=== PATIENT | male | born 1970 | race African-American/Black ===

== ENCOUNTER 2022-05-09 13:37 | Inpatient (IN) ==
[2022-05-09] MEDS ORDERED: SODIUM CHLORIDE 0.9% 1,000 ML IV STA ×2 (14:14→14:53)
[2022-05-09 14:32] LABS: Albumin 3.4 G/DL (3.4-5.0); Bilirubin,Total 0.4 MG/DL (0.20-1.00); Calcium 9.1 MG/DL (8.5-10.1); Osmolality,Calculated 358.1 MOS/KG (273-304); Total Protein 6.7 G/DL (6.4-8.2)
[2022-05-09 14:48] LABS: Potassium 7.1 MMOL/L (3.5-5.1)
[2022-05-09] MEDS ORDERED: SODIUM BICARBONATE 50 MEQ/50 ML VIAL IV STA (14:49)
[2022-05-09] MEDS ORDERED: INSULIN REGULAR 100 UNIT/ML IV ONE (14:50)
[2022-05-09] MEDS ORDERED: INSULIN REGULAR DRIP 100 ML IV PRN (14:50)
[2022-05-09] MEDS ORDERED: CALCIUM GLUCONATE RIDER 1,000 MG/50 ML PREMIX IV ONE (14:52)
[2022-05-09 14:58] LABS: Basophils % 0.3 % (0.0-0.8); Eosinophils % 0.2 % (0.00-10.9); Hematocrit 38.6 VOL% (42.0-52.0); Hemoglobin 9.5 GM/DL (14.0-18.0); Immature Granulocytes % 0.9 %; Immature Granulocytes Absolute 0.11 #; Lymphocytes # 1.1 10*3/uL (1.4-4.0); Lymphocytes % 9.1 % (21.2-54.2); Mean Corpuscular HGB Conc 24.6 GM/DL (32-36); Mean Corpuscular Volume 119.1 FL (87-102); Mean Platelet Volume 13.4 FL (9.6-12.0); Monocytes # 0.7 10*3/uL (0.11-0.8); Monocytes % 5.9 % (1.7-12.7); NRBC # 0.02 10*3/uL; Neutrophils % 83.6 % (38.7-73.9); Platelet Count 228 T/CUMM (130-400); Red Blood Count 3.24 MC/CUMM (3.8-5.5); Red Cell Distribution Width 15.2 % (9.3-17.3); White Blood Count 12.1 T/CUMM (4-12)
[2022-05-09 15:06] LABS: Anisocytosis 1+; Macrocytosis 1+; Microcytosis Slight; Platelet Estimate Adequate
[2022-05-09 15:07] LABS: Polychromasia Slight
[2022-05-09 15:08] LABS: Hypochromia Slight
[2022-05-09 15:19] LABS: Arterial Base Excess iSTAT -23 MMOL/L (-2.5-2.5); Arterial Bicarbonate iSTAT 4.5 MMOL/L (20-26); Arterial O2 Saturation iSTAT 98 % (95-100); Arterial PCO2 iSTAT 14 MM HG (35-48); Arterial PO2 iSTAT 135 MM HG (80-95); Arterial Total CO2 iSTAT < 5 MMO/L (23-27); Arterial pH iSTAT 7.125 (7.35-7.45)
[2022-05-09] MEDS ORDERED: ONDANSETRON 4 MG/2 ML VIAL IV PRN (15:52)
[2022-05-09] MEDS ORDERED: ALBUTEROL 2.5 MG/3 ML NEB RESP TX PRN (15:52)
[2022-05-09] MEDS ORDERED: LACTATED RINGERS 2,000 ML IV ONE (15:55)
[2022-05-09 15:59] LABS: Barbiturates Screen,Urine Negative (Negative); Benzodiazepines Screen,Urine Negative (Negative); Cannabinoid Screen,Urine Negative (Negative); Opiate Screen,Urine Negative (Negative); Phencyclidine Screen,Urine Negative (Negative)
[2022-05-09] MEDS ORDERED: DEXTROSE 50% 25 GM/50 ML SYRINGE IV PRN ×2 (16:03)
[2022-05-09] MEDS: ENOXAPARIN 30 MG/0.3 ML SYRINGE SUBCUT SCH (17:14)
[2022-05-09 17:15] LABS: Folate 12.03 NG/ML (5.38-24.0)
[2022-05-09] MEDS: PANTOPRAZOLE 40 MG VIAL IV SCH (17:15)
[2022-05-09 17:22] LABS: Amorphous Crystals,Urine Occasional /HPF (Few); Bacteria,Urine Occasional /HPF (Few); Bilirubin,Urine Negative (Negative); Blood, Urine Small mg/dL (Negative); Glucose,Urine (UA) 500 mg/dL (Negative); Ketones,Urine 40 mg/dL (Negative); Mucus,Urine Occasional /LPF (Occasional); Nitrite,Urine Negative (Negative); Protein,Urine Negative (Negative); Squamous Epithelial Cell,Urine Occasional /HPF (0-10); Urine Appearance Clear (Clear); Urine Color Yellow (Yellow); Urine Specific Gravity 1.015 (1.001-1.035); Urine Urobilinogen 0.2 eU/dL (<2.0); Urine pH 5.5 (4.5-8.0)
[2022-05-09 17:22] LABS: Calcium 8.6 MG/DL (8.5-10.1); Osmolality,Calculated 365.4 MOS/KG (273-304); Potassium 5.2 MMOL/L (3.5-5.1)
[2022-05-09] MEDS: LACTATED RINGERS 1,000 ML IV SCH ×2 (18:15→23:11)
[2022-05-09] MEDS ORDERED: LABETALOL 20 MG/4 ML SYRINGE IV ONE (19:19)
[2022-05-09 19:26] LABS: Calcium 8.9 MG/DL (8.5-10.1); Osmolality,Calculated 353.7 MOS/KG (273-304); Potassium 4.5 MMOL/L (3.5-5.1)
[2022-05-09] MEDS ORDERED: HALOPERIDOL 5 MG/ML AMP IM ONE (19:35)
[2022-05-10 01:18] LABS: Calcium 9.4 MG/DL (8.5-10.1); Potassium 3.7 MMOL/L (3.5-5.1)
[2022-05-10] MEDS ORDERED: LABETALOL 20 MG/4 ML SYRINGE IV ONE (02:30)
[2022-05-10] MEDS: LACTATED RINGERS 1,000 ML IV SCH ×5 (03:58→23:41)
[2022-05-10 05:24] LABS: Basophils % 0.1 % (0.0-0.8); Eosinophils % 0.5 % (0.00-10.9); Hematocrit 26.7 VOL% (42.0-52.0); Immature Granulocytes % 0.2 %; Immature Granulocytes Absolute 0.02 #; Lymphocytes # 1.3 10*3/uL (1.4-4.0); Lymphocytes % 15.9 % (21.2-54.2); Mean Corpuscular HGB Conc 33.7 GM/DL (32-36); Mean Corpuscular Volume 86.7 FL (87-102); Monocytes # 0.5 10*3/uL (0.11-0.8); Monocytes % 5.3 % (1.7-12.7); Platelet Count 186 T/CUMM (130-400); Red Blood Count 3.08 MC/CUMM (3.8-5.5); Red Cell Distribution Width 14.1 % (9.3-17.3); White Blood Count 8.4 T/CUMM (4-12)
[2022-05-10 05:40] LABS: Calcium 9.3 MG/DL (8.5-10.1); Osmolality,Calculated 320.4 MOS/KG (273-304); Phosphorous 2.8 MG/DL (2.5-4.9); Potassium 3.6 MMOL/L (3.5-5.1)
[2022-05-10] MEDS ORDERED: DEXTROSE 10% 250 ML BAG IV PRN (05:45)
[2022-05-10 05:50] LABS: Anisocytosis 1+; Band Neutrophils 5 % (0-10); Eosinophils 1 % (0-10); Lymphocytes 14 % (20-55); Microcytosis 1+; Target Cells Slight; Total Cells Counted 100
[2022-05-10 05:51] LABS: Hypochromia Slight; Platelet Estimate Adequate; Polychromasia Slight
[2022-05-10] MEDS ORDERED: hydrALAZINE 20 MG/1 ML VIAL IV PRN (05:54)
[2022-05-10] MEDS: SODIUM CHLORIDE 0.45% 1,000 ML IV SCH ×2 (06:15→16:41)
[2022-05-10 08:12] LABS: Calcium 9.3 MG/DL (8.5-10.1); Osmolality,Calculated 319.7 MOS/KG (273-304); Potassium 3.8 MMOL/L (3.5-5.1)
[2022-05-10] MEDS: INSULIN LISPRO 100 UNIT/ML SUBCUT SCH ×5 (09:40→23:41)
[2022-05-10] MEDS: ZINC OXIDE PASTE 113 GM TUBE TOP SCH ×2 (11:30→21:09)
[2022-05-10 12:37] LABS: Osmolality,Calculated 319.4 MOS/KG (273-304); Potassium 3.1 MMOL/L (3.5-5.1)
[2022-05-10] MEDS: POTASSIUM CHLORIDE 20 MEQ TABLET PO SCH ×3 (13:10→21:09)
[2022-05-10] MEDS ORDERED: INSULIN ASPART PROTAMINE/ASPART 70/30 100 UNIT/ML SUBCUT ONE (14:13)
[2022-05-10] MEDS: buPROPion SR 150 MG TABLET PO SCH (14:51)
[2022-05-10] MEDS: amLODIPine 10 MG TABLET PO SCH (14:51)
[2022-05-10] MEDS ORDERED: INSULIN NPH/REG 70/30 100 UNIT/ML SUBCUT ONE (15:20)
[2022-05-10] MEDS: VANCOMYCIN 125 MG CAPSULE PO SCH ×2 (16:10→21:09)
[2022-05-10] MEDS: ENOXAPARIN 30 MG/0.3 ML SYRINGE SUBCUT SCH (16:10)
[2022-05-10] MEDS: PANTOPRAZOLE 40 MG VIAL IV SCH (16:10)
[2022-05-10] MEDS ORDERED: INSULIN ASPART PROTAMINE/ASPART 70/30 100 UNIT/ML SUBCUT SCH ×2 (16:30)
[2022-05-10] MEDS: CHOLESTYRAMINE/ASPARTAME 4 GM PACK PO SCH (21:09)
[2022-05-10] MEDS: MIRTAZAPINE 30 MG TABLET PO SCH (21:09)
[2022-05-11] MEDS: POTASSIUM CHLORIDE 20 MEQ TABLET PO SCH ×4 (02:08→18:24)
[2022-05-11] MEDS: SODIUM CHLORIDE 0.45% 1,000 ML IV SCH ×2 (02:08→18:23)
[2022-05-11] MEDS: VANCOMYCIN 125 MG CAPSULE PO SCH ×2 (03:20→09:11)
[2022-05-11] MEDS: INSULIN LISPRO 100 UNIT/ML SUBCUT SCH ×6 (04:05→23:18)
[2022-05-11] MEDS: LACTATED RINGERS 1,000 ML IV SCH ×3 (05:53→14:00)
[2022-05-11 07:02] LABS: Eosinophils # 0.1 10*3/uL (0.0-0.87); Eosinophils % 1.1 % (0.00-10.9); Hematocrit 30.1 VOL% (42.0-52.0); Hemoglobin 9.4 GM/DL (14.0-18.0); Immature Granulocytes % 0.5 %; Immature Granulocytes Absolute 0.04 #; Lymphocytes # 0.8 10*3/uL (1.4-4.0); Lymphocytes % 8.8 % (21.2-54.2); Mean Corpuscular HGB Conc 31.2 GM/DL (32-36); Mean Corpuscular Volume 90.4 FL (87-102); Mean Platelet Volume 11.8 FL (9.6-12.0); Monocytes # 0.4 10*3/uL (0.11-0.8); Monocytes % 4.4 % (1.7-12.7); Neutrophils % 85.2 % (38.7-73.9); Platelet Count 163 T/CUMM (130-400); Red Blood Count 3.33 MC/CUMM (3.8-5.5); Red Cell Distribution Width 15.1 % (9.3-17.3); White Blood Count 8.8 T/CUMM (4-12)
[2022-05-11 07:24] LABS: Band Neutrophils 22 % (0-10); Eosinophils 3 % (0-10); Lymphocytes 8 % (20-55); Platelet Estimate Normal; Total Cells Counted 100
[2022-05-11 07:25] LABS: Anisocytosis 1+; Macrocytosis Slight
[2022-05-11] MEDS ORDERED: INSULIN ASPART PROTAMINE/ASPART 70/30 100 UNIT/ML SUBCUT SCH ×2 (07:30)
[2022-05-11 07:41] LABS: Calcium 8.7 MG/DL (8.5-10.1); Osmolality,Calculated 296.4 MOS/KG (273-304); Potassium 4.5 MMOL/L (3.5-5.1)
[2022-05-11] MEDS: amLODIPine 10 MG TABLET PO SCH (09:10)
[2022-05-11] MEDS: buPROPion SR 150 MG TABLET PO SCH (09:10)
[2022-05-11] MEDS: CHOLESTYRAMINE/ASPARTAME 4 GM PACK PO SCH (09:11)
[2022-05-11] MEDS: ZINC OXIDE PASTE 113 GM TUBE TOP SCH ×2 (13:33→20:39)
[2022-05-11] MEDS: PANTOPRAZOLE 40 MG VIAL IV SCH (18:22)
[2022-05-11] MEDS: INSULIN ASPART PROTAMINE/ASPART 70/30 100 UNIT/ML SUBCUT SCH (18:22)
[2022-05-11] MEDS: MIRTAZAPINE 30 MG TABLET PO SCH (20:39)
[2022-05-11] MEDS: NIFEdipine 10 MG CAPSULE PO PRN (23:36)
[2022-05-12] MEDS: INSULIN LISPRO 100 UNIT/ML SUBCUT SCH ×6 (03:38→23:40)
[2022-05-12 05:07] LABS: Basophils % 0.3 % (0.0-0.8); Eosinophils # 0.2 10*3/uL (0.0-0.87); Eosinophils % 1.8 % (0.00-10.9); Hematocrit 33.3 VOL% (42.0-52.0); Hemoglobin 10.7 GM/DL (14.0-18.0); Immature Granulocytes % 0.5 %; Immature Granulocytes Absolute 0.05 #; Lymphocytes # 1.1 10*3/uL (1.4-4.0); Lymphocytes % 11.6 % (21.2-54.2); Mean Corpuscular HGB Conc 32.1 GM/DL (32-36); Mean Corpuscular Volume 88.6 FL (87-102); Mean Platelet Volume 12.7 FL (9.6-12.0); Monocytes # 0.6 10*3/uL (0.11-0.8); Monocytes % 6.2 % (1.7-12.7); Neutrophils % 79.6 % (38.7-73.9); Platelet Count 176 T/CUMM (130-400); Red Blood Count 3.76 MC/CUMM (3.8-5.5); Red Cell Distribution Width 14.9 % (9.3-17.3); White Blood Count 9.5 T/CUMM (4-12)
[2022-05-12 05:27] LABS: Calcium 9.1 MG/DL (8.5-10.1); Osmolality,Calculated 279.4 MOS/KG (273-304); Potassium 3.9 MMOL/L (3.5-5.1)
[2022-05-12 06:36] LABS: Eosinophils 3 % (0-10); Lymphocytes 9 % (20-55); Platelet Estimate Adequate; Total Cells Counted 100
[2022-05-12] MEDS: amLODIPine 10 MG TABLET PO SCH (07:59)
[2022-05-12] MEDS: buPROPion SR 150 MG TABLET PO SCH (07:59)
[2022-05-12] MEDS: ZINC OXIDE PASTE 113 GM TUBE TOP SCH ×2 (08:01→20:05)
[2022-05-12] MEDS: INSULIN ASPART PROTAMINE/ASPART 70/30 100 UNIT/ML SUBCUT SCH ×2 (11:06→17:47)
[2022-05-12] MEDS: CHOLESTYRAMINE/ASPARTAME 4 GM PACK PO SCH (11:07)
[2022-05-12] MEDS: PANTOPRAZOLE 40 MG VIAL IV SCH (17:46)
[2022-05-12] MEDS: MIRTAZAPINE 30 MG TABLET PO SCH (20:05)
[2022-05-13] MEDS: NIFEdipine 10 MG CAPSULE PO PRN (00:35)
[2022-05-13] MEDS ORDERED: hydrALAZINE 20 MG/1 ML VIAL IV STA (00:45)
[2022-05-13] MEDS: INSULIN LISPRO 100 UNIT/ML SUBCUT SCH ×2 (03:45→09:15)
[2022-05-13] MEDS: INSULIN ASPART PROTAMINE/ASPART 70/30 100 UNIT/ML SUBCUT SCH (09:08)
[2022-05-13] MEDS: amLODIPine 10 MG TABLET PO SCH (09:10)
[2022-05-13] MEDS: buPROPion SR 150 MG TABLET PO SCH (09:10)
[2022-05-13] MEDS: ZINC OXIDE PASTE 113 GM TUBE TOP SCH (09:14)
[2022-05-13] MEDS: CHOLESTYRAMINE/ASPARTAME 4 GM PACK PO SCH (09:15)
[2022-05-13 10:06] VITALS: BP 143/98
[2022-05-13] MEDS ORDERED: INFLUENZA VIRUS VACCINE 0.5 ML SYRINGE IM ONE (12:08)
== END 2022-05-13 13:00 | disposition home or self-care (01) | DRG 420 ==
LOC: N.ED 13:37 → N.EDINP 15:52 → SUATTDRO 15:52 → N.ICU 17:36
PROVIDERS: ADMIT Internal Medicine; ATTEND Emergency Medicine

== ENCOUNTER 2022-07-12 17:25 | Inpatient (IN) ==
[2022-07-12] MEDS ORDERED: SODIUM CHLORIDE 0.9% 2,000 ML IV STA (18:26)
[2022-07-12] MEDS ORDERED: INSULIN REGULAR 100 UNIT/ML SUBCUT STA (18:37)
[2022-07-12] MEDS ORDERED: ONDANSETRON 4 MG/2 ML VIAL IV STA (18:37)
[2022-07-12] MEDS ORDERED: INSULIN REGULAR DRIP 100 ML IV PRN (18:38)
[2022-07-12 18:44] LABS: Arterial Base Excess iSTAT -13 MMOL/L (-2.5-2.5); Arterial Bicarbonate iSTAT 12.3 MMOL/L (20-26); Arterial O2 Saturation iSTAT 97 % (95-100); Arterial PCO2 iSTAT 27 MM HG (35-48); Arterial PO2 iSTAT 102 MM HG (80-95); Arterial Total CO2 iSTAT 13 MMO/L (23-27); Arterial pH iSTAT 7.273 (7.35-7.45)
[2022-07-12 18:45] LABS: Basophils % 0.2 % (0.0-0.8); Eosinophils % 0.1 % (0.00-10.9); Hematocrit 34.7 VOL% (42.0-52.0); Hemoglobin 10.6 GM/DL (14.0-18.0); Immature Granulocytes % 0.6 %; Immature Granulocytes Absolute 0.08 #; Lymphocytes # 1.6 10*3/uL (1.4-4.0); Lymphocytes % 12.2 % (21.2-54.2); Mean Corpuscular HGB Conc 30.5 GM/DL (32-36); Mean Corpuscular Volume 91.3 FL (87-102); Mean Platelet Volume 11.5 FL (9.6-12.0); Monocytes # 0.7 10*3/uL (0.11-0.8); Monocytes % 5.8 % (1.7-12.7); Neutrophils % 81.1 % (38.7-73.9); Platelet Count 397 T/CUMM (130-400); White Blood Count 12.66 T/CUMM (4-12)
[2022-07-12] MEDS ORDERED: INSULIN REGULAR 100 UNIT/ML IV STA (18:52)
[2022-07-12 18:59] LABS: Alanine Aminotransferase 28 U/L (16-61); Albumin 3.9 G/DL (3.4-5.0); Alkaline Phosphatase 163 U/L (45-117); Amylase 55 U/L (25-115); Aspartate Amino Transferase 11 U/L (0-37); Blood Urea Nitrogen 33 MG/DL (7-18); Calcium 9.5 MG/DL (8.5-10.1); Carbon Dioxide 15 MMOL/L (21-32); Chloride 107 MMOL/L (98-107); Osmolality,Calculated 320.3 MOS/KG (273-304); Sodium 141 MMOL/L (136-145); Total Protein 8.4 G/DL (6.4-8.2)
[2022-07-12 19:03] LABS: Glucose 701 MG/DL (74-106)
[2022-07-12] MEDS ORDERED: hydrALAZINE 20 MG/1 ML VIAL IV STA (19:20)
[2022-07-12] MEDS ORDERED: SODIUM PHOSPHATE INJ 12.5 MMOL in SODIUM CHLORIDE 0.9% 250 ML IV PRN (19:31)
[2022-07-12] MEDS ORDERED: MAGNESIUM SULF RIDER 2 GM/50 ML PREMIX IV PRN (19:31)
[2022-07-12] MEDS ORDERED: MAGNESIUM SULF RIDER 4 GM/100 ML PREMIX IV PRN (19:31)
[2022-07-12] MEDS ORDERED: DEXTROSE 10% 250 ML BAG IV PRN (19:31)
[2022-07-12] MEDS ORDERED: DEXTROSE 10% 25 GM/250 ML BAG IV PRN ×2 (19:31→20:00)
[2022-07-12] MEDS ORDERED: DOCUSATE SODIUM 100 MG CAPSULE PO PRN (19:36)
[2022-07-12] MEDS ORDERED: ALBUTEROL 2.5 MG/3 ML NEB RESP TX PRN (19:36)
[2022-07-12] MEDS ORDERED: ACETAMINOPHEN 325 MG TABLET PO PRN (19:36)
[2022-07-12] MEDS ORDERED: SODIUM BICARB INJ 100 MEQ in STERILE WATER INJ 400 ML IV PRN (20:00)
[2022-07-12 20:36] LABS: Urine Appearance Clear (Clear); Urine Color Yellow (Yellow)
[2022-07-12 20:37] LABS: Bilirubin,Urine Negative (Negative); Blood, Urine Trace mg/dL (Negative); Glucose,Urine (UA) 500 mg/dL (Negative); Ketones,Urine 60 mg/dL (Negative); Nitrite,Urine Negative (Negative); Protein,Urine 30 mg/dL (Negative); Urine Specific Gravity 1.015 (1.001-1.035); Urine Urobilinogen 0.2 eU/dL (<2.0); Urine pH 5.5 (4.5-8.0)
[2022-07-12 20:38] LABS: Mucus,Urine Occasional /LPF (Occasional); Squamous Epithelial Cell,Urine Occasional /HPF (0-10)
[2022-07-12] MEDS: SODIUM CHLORIDE 0.9% 1,000 ML IV SCH (20:41)
[2022-07-12 21:12] LABS: Calcium 8.7 MG/DL (8.5-10.1); Osmolality,Calculated 311.8 MOS/KG (273-304); Potassium 4.5 MMOL/L (3.5-5.1)
[2022-07-12] MEDS: hydrALAZINE 20 MG/1 ML VIAL IV PRN ×2 (21:21→22:14)
[2022-07-12] MEDS ORDERED: LEVOFLOXACIN INJ 750 MG/150 ML PREMIX IV SCH (23:00)
[2022-07-12] MEDS ORDERED: hydrALAZINE 20 MG/1 ML VIAL IV ONE (23:30)
[2022-07-13] MEDS: SODIUM CHLORIDE 0.9% 1,000 ML IV SCH ×3 (01:11→07:39)
[2022-07-13] MEDS: NICOTINE 21 MG/24 HR PATCH TRANSDERM SCH ×2 (01:12→08:11)
[2022-07-13 04:58] LABS: Basophils # 0.1 10*3/uL (0.0-0.2); Basophils % 0.4 % (0.0-0.8); Eosinophils # 0.1 10*3/uL (0.0-0.87); Eosinophils % 0.4 % (0.00-10.9); Hematocrit 28.2 VOL% (42.0-52.0); Hemoglobin 8.7 GM/DL (14.0-18.0); Immature Granulocytes % 0.7 %; Immature Granulocytes Absolute 0.11 #; Lymphocytes # 2.4 10*3/uL (1.4-4.0); Mean Corpuscular HGB Conc 30.9 GM/DL (32-36); Mean Corpuscular Volume 89.5 FL (87-102); Mean Platelet Volume 11.6 FL (9.6-12.0); Neutrophils % 78.5 % (38.7-73.9); Platelet Count 235 T/CUMM (130-400); Red Blood Count 3.15 MC/CUMM (3.8-5.5); Red Cell Distribution Width 14.8 % (9.3-17.3); White Blood Count 16.81 T/CUMM (4-12)
[2022-07-13] MEDS: hydrALAZINE 20 MG/1 ML VIAL IV PRN ×2 (05:06→12:10)
[2022-07-13 05:13] LABS: Calcium 8.2 MG/DL (8.5-10.1); Osmolality,Calculated 296.8 MOS/KG (273-304); Potassium 3.7 MMOL/L (3.5-5.1)
[2022-07-13 05:14] LABS: Phosphorous 1.5 MG/DL (2.5-4.9)
[2022-07-13 05:17] LABS: % Iron Saturation 27.4 % (18-50); Ferritin 300.6 ng/mL (26-388); Risk Ratio 2.52; VLDL Cholesterol 16.8 MG/DL
[2022-07-13] MEDS: ONDANSETRON 4 MG/2 ML VIAL IV PRN (05:20)
[2022-07-13 05:36] LABS: Alanine Aminotransferase 20 U/L (16-61); Albumin 2.9 G/DL (3.4-5.0); Alkaline Phosphatase 127 U/L (45-117); Aspartate Amino Transferase 7 U/L (0-37); Bilirubin,Total < 0.39 MG/DL (0.20-1.00); Blood Urea Nitrogen 20 MG/DL (7-18); Calcium 8.4 MG/DL (8.5-10.1); Carbon Dioxide 18 MMOL/L (21-32); Chloride 119 MMOL/L (98-107); Glucose 238 MG/DL (74-106); Osmolality,Calculated 300.6 MOS/KG (273-304); Potassium 3.8 MMOL/L (3.5-5.1); Sodium 146 MMOL/L (136-145); Total Protein 6.9 G/DL (6.4-8.2)
[2022-07-13] MEDS ORDERED: DEXT 5% NACL 0.45% KCL 20 MEQ 20 MEQ/1,000 ML BAG IV SCH (06:30)
[2022-07-13 07:50] LABS: Calcium 8.5 MG/DL (8.5-10.1); Osmolality,Calculated 292.7 MOS/KG (273-304); Potassium 3.6 MMOL/L (3.5-5.1)
[2022-07-13] MEDS: ASPIRIN EC 81 MG TABLET PO SCH (08:11)
[2022-07-13] MEDS: ENOXAPARIN 40 MG/0.4 ML SYRINGE SUBCUT SCH (08:11)
[2022-07-13] MEDS: buPROPion SR 150 MG TABLET PO SCH (08:11)
[2022-07-13] MEDS: amLODIPine 10 MG TABLET PO SCH (08:11)
[2022-07-13] MEDS ORDERED: SODIUM CHLOR 0.45% KCL 20 MEQ 20 MEQ/1,000 ML BAG IV SCH (09:30)
[2022-07-13] MEDS ORDERED: INSULIN ASPART PROTAMINE/ASPART 70/30 100 UNIT/ML SUBCUT SCH ×3 (10:00→16:30)
[2022-07-13] MEDS: LACTATED RINGERS 1,000 ML IV SCH ×2 (10:18→20:27)
[2022-07-13] MEDS: LEVOFLOXACIN 750 MG TABLET PO SCH (10:18)
[2022-07-13] MEDS: INSULIN ASPART PROTAMINE/ASPART 70/30 100 UNIT/ML SUBCUT SCH (10:39)
[2022-07-13] MEDS: INSULIN REGULAR 100 UNIT/ML SUBCUT SCH ×4 (12:04→20:28)
[2022-07-13 12:49] LABS: Calcium 8.7 MG/DL (8.5-10.1); Osmolality,Calculated 289.4 MOS/KG (273-304); Potassium 3.7 MMOL/L (3.5-5.1)
[2022-07-13] MEDS ORDERED: SODIUM CHLORIDE 0.45% 1,000 ML IV SCH (13:00)
[2022-07-13 15:59] LABS: Calcium 8.7 MG/DL (8.5-10.1); Osmolality,Calculated 285.3 MOS/KG (273-304); Potassium 3.1 MMOL/L (3.5-5.1)
[2022-07-13] MEDS: POTASSIUM CHLORIDE RIDER 10 MEQ/100 ML PREMIX IV PRN ×3 (16:11→20:03)
[2022-07-13] MEDS ORDERED: MIRTAZAPINE 30 MG TABLET PO SCH (21:00)
[2022-07-14] MEDS: POTASSIUM CHLORIDE RIDER 10 MEQ/100 ML PREMIX IV PRN ×2 (00:17→01:21)
[2022-07-14] MEDS: ONDANSETRON 4 MG/2 ML VIAL IV PRN ×2 (03:17→07:55)
[2022-07-14 04:48] LABS: Basophils # 0.1 10*3/uL (0.0-0.2); Basophils % 0.3 % (0.0-0.8); Eosinophils # 0.3 10*3/uL (0.0-0.87); Eosinophils % 1.8 % (0.00-10.9); Hematocrit 31.4 VOL% (42.0-52.0); Hemoglobin 9.9 GM/DL (14.0-18.0); Immature Granulocytes % 0.6 %; Immature Granulocytes Absolute 0.08 #; Lymphocytes # 1.3 10*3/uL (1.4-4.0); Lymphocytes % 9.3 % (21.2-54.2); Mean Corpuscular HGB Conc 31.5 GM/DL (32-36); Mean Corpuscular Volume 88.5 FL (87-102); Mean Platelet Volume 11.2 FL (9.6-12.0); Monocytes # 0.9 10*3/uL (0.11-0.8); Monocytes % 6.2 % (1.7-12.7); Neutrophils % 81.8 % (38.7-73.9); Platelet Count 339 T/CUMM (130-400); Red Blood Count 3.55 MC/CUMM (3.8-5.5); Red Cell Distribution Width 14.4 % (9.3-17.3); White Blood Count 14.35 T/CUMM (4-12)
[2022-07-14 05:26] LABS: Alanine Aminotransferase 18 U/L (16-61); Albumin 2.8 G/DL (3.4-5.0); Alkaline Phosphatase 128 U/L (45-117); Aspartate Amino Transferase 11 U/L (0-37); Bilirubin,Total < 0.39 MG/DL (0.20-1.00); Blood Urea Nitrogen 10 MG/DL (7-18); Calcium 8.7 MG/DL (8.5-10.1); Carbon Dioxide 20 MMOL/L (21-32); Chloride 109 MMOL/L (98-107); Glucose 321 MG/DL (74-106); Osmolality,Calculated 283.8 MOS/KG (273-304); Potassium 4.4 MMOL/L (3.5-5.1); Sodium 137 MMOL/L (136-145); Total Protein 6.8 G/DL (6.4-8.2)
[2022-07-14] MEDS: hydrALAZINE 20 MG/1 ML VIAL IV PRN (05:32)
[2022-07-14] MEDS: LACTATED RINGERS 1,000 ML IV SCH (05:33)
[2022-07-14] MEDS: INSULIN REGULAR 100 UNIT/ML SUBCUT SCH ×3 (07:55→11:41)
[2022-07-14] MEDS: buPROPion SR 150 MG TABLET PO SCH (09:42)
[2022-07-14] MEDS: amLODIPine 10 MG TABLET PO SCH (09:42)
[2022-07-14] MEDS: ASPIRIN EC 81 MG TABLET PO SCH (09:42)
[2022-07-14] MEDS: LEVOFLOXACIN 750 MG TABLET PO SCH (09:42)
[2022-07-14] MEDS: ENOXAPARIN 40 MG/0.4 ML SYRINGE SUBCUT SCH (09:43)
[2022-07-14] MEDS: INSULIN ASPART PROTAMINE/ASPART 70/30 100 UNIT/ML SUBCUT SCH (09:43)
[2022-07-14] MEDS: NICOTINE 21 MG/24 HR PATCH TRANSDERM SCH (10:21)
[2022-07-14 12:03] VITALS: BP 147/89
== END 2022-07-14 15:10 | disposition home or self-care (01) | DRG 420 ==
LOC: N.ED 17:25 → SUATTDRO 19:30 → N.EDINP 19:30 → N.CC 21:28 → N.TELEN 07-13 21:10
PROVIDERS: ADMIT Family Medicine; ATTEND Internal Medicine

== ENCOUNTER 2022-07-19 03:27 | Inpatient (IN) ==
[2022-07-19] MEDS ORDERED: ONDANSETRON 4 MG/2 ML VIAL IV STA (03:44)
[2022-07-19] MEDS ORDERED: SODIUM CHLORIDE 0.9% 1,000 ML IV STA ×2 (03:44→04:57)
[2022-07-19] MEDS ORDERED: INSULIN REGULAR 100 UNIT/ML IV STA ×2 (03:46→04:56)
[2022-07-19] MEDS ORDERED: hydrALAZINE 20 MG/1 ML VIAL IV STA ×2 (03:57→06:25)
[2022-07-19 04:17] LABS: Arterial Base Excess iSTAT -18 MMOL/L (-2.5-2.5); Arterial Bicarbonate iSTAT 7.8 MMOL/L (20-26); Arterial O2 Saturation iSTAT 97 % (95-100); Arterial PCO2 iSTAT 19 MM HG (35-48); Arterial PO2 iSTAT 106 MM HG (80-95); Arterial Total CO2 iSTAT 8 MMO/L (23-27); Arterial pH iSTAT 7.216 (7.35-7.45)
[2022-07-19 04:18] LABS: Basophils % 0.3 % (0.0-0.8); Eosinophils % 0.2 % (0.00-10.9); Hematocrit 39.3 VOL% (42.0-52.0); Immature Granulocytes % 0.4 %; Immature Granulocytes Absolute 0.05 #; Lymphocytes # 0.7 10*3/uL (1.4-4.0); Lymphocytes % 5.9 % (21.2-54.2); Mean Corpuscular HGB Conc 26.7 GM/DL (32-36); Mean Corpuscular Volume 104.2 FL (87-102); Mean Platelet Volume 12.8 FL (9.6-12.0); Monocytes # 0.6 10*3/uL (0.11-0.8); Monocytes % 4.8 % (1.7-12.7); Neutrophils % 88.4 % (38.7-73.9); Platelet Count 373 T/CUMM (130-400); Red Blood Count 3.77 MC/CUMM (3.8-5.5); Red Cell Distribution Width 15.7 % (9.3-17.3); White Blood Count 12.51 T/CUMM (4-12)
[2022-07-19 04:19] LABS: Hemoglobin 10.5 GM/DL (14.0-18.0)
[2022-07-19] MEDS ORDERED: INSULIN REGULAR DRIP 100 ML IV PRN (04:46)
[2022-07-19 04:50] LABS: Alanine Aminotransferase 24 U/L (16-61); Albumin 3.9 G/DL (3.4-5.0); Alkaline Phosphatase 176 U/L (45-117); Amylase 77 U/L (25-115); Aspartate Amino Transferase 13 U/L (0-37); Blood Urea Nitrogen 54 MG/DL (7-18); Calcium 10.1 MG/DL (8.5-10.1); Carbon Dioxide 6 MMOL/L (21-32); Chloride 90 MMOL/L (98-107); Osmolality,Calculated 348.1 MOS/KG (273-304); Sodium 128 MMOL/L (136-145); Total Protein 9.3 G/DL (6.4-8.2)
[2022-07-19 04:54] LABS: Glucose 1483 MG/DL (74-106); Potassium 7.1 MMOL/L (3.5-5.1)
[2022-07-19] MEDS ORDERED: CALCIUM CHLORIDE 1,000 MG/10 ML SYRINGE IV STA (04:57)
[2022-07-19] MEDS ORDERED: SODIUM PHOSPHATE IV PRN (05:54)
[2022-07-19] MEDS ORDERED: SODIUM CHLORIDE 0.9% IV PRN (05:54)
[2022-07-19] MEDS ORDERED: SODIUM BICARB INJ 100 MEQ in STERILE WATER INJ 400 ML IV PRN (05:54)
[2022-07-19] MEDS ORDERED: MAGNESIUM SULF RIDER 2 GM/50 ML PREMIX IV PRN (05:56)
[2022-07-19] MEDS ORDERED: MAGNESIUM SULF RIDER 4 GM/100 ML PREMIX IV PRN (05:56)
[2022-07-19] MEDS ORDERED: POTASSIUM CHLORIDE RIDER 10 MEQ/100 ML PREMIX IV PRN (05:56)
[2022-07-19] MEDS ORDERED: hydrALAZINE 20 MG/1 ML VIAL IV PRN (05:59)
[2022-07-19] MEDS ORDERED: SODIUM CHLORIDE 0.9% 1,000 ML IV ONE (06:15)
[2022-07-19] MEDS ORDERED: DEXTROSE 10% 250 ML BAG IV PRN ×2 (06:22)
[2022-07-19 06:44] LABS: Bacteria,Urine Occasional /HPF (Few); Mucus,Urine Occasional /LPF (Occasional); RBC,Urine <1 /HPF (0-4)
[2022-07-19 06:52] LABS: Urine Appearance Clear (Clear); Urine Color Light Yellow (Yellow)
[2022-07-19 06:53] LABS: Bilirubin,Urine Negative (Negative); Blood, Urine Negative (Negative); Glucose,Urine (UA) 500 mg/dL (Negative); Ketones,Urine 40 mg/dL (Negative); Nitrite,Urine Negative (Negative); Protein,Urine Negative (Negative); Urine Urobilinogen 0.2 eU/dL (<2.0)
[2022-07-19] MEDS ORDERED: SODIUM CHLORIDE 0.9% 1,000 ML IV SCH ×2 (07:00→11:00)
[2022-07-19 07:29] LABS: Barbiturates Screen,Urine Negative (Negative); Benzodiazepines Screen,Urine Negative (Negative); Cannabinoid Screen,Urine Negative (Negative); Opiate Screen,Urine Negative (Negative); Phencyclidine Screen,Urine Negative (Negative)
[2022-07-19 08:05] LABS: Osmolality,Calculated 327.7 MOS/KG (273-304); Potassium 4.7 MMOL/L (3.5-5.1)
[2022-07-19] MEDS: ASPIRIN EC 81 MG TABLET PO SCH (08:17)
[2022-07-19] MEDS: amLODIPine 10 MG TABLET PO SCH (08:17)
[2022-07-19] MEDS: buPROPion SR 150 MG TABLET PO SCH (08:17)
[2022-07-19] MEDS: ENOXAPARIN 40 MG/0.4 ML SYRINGE SUBCUT SCH (08:17)
[2022-07-19] MEDS: INSULIN NPH/REG 70/30 100 UNIT/ML SUBCUT SCH (08:32)
[2022-07-19] MEDS: LACTATED RINGERS 1,000 ML IV SCH ×2 (08:45→13:13)
[2022-07-19] MEDS ORDERED: LACTATED RINGERS 500 ML IV ONE (10:31)
[2022-07-19 12:27] LABS: Calcium 9.9 MG/DL (8.5-10.1); Osmolality,Calculated 316.9 MOS/KG (273-304); Potassium 3.6 MMOL/L (3.5-5.1)
[2022-07-19] MEDS: POTASSIUM CHLORIDE 20 MEQ TABLET PO SCH ×3 (13:17→20:40)
[2022-07-19] MEDS: SODIUM CHLOR 0.45% KCL 20 MEQ 20 MEQ/1,000 ML BAG IV SCH ×2 (13:17→20:41)
[2022-07-19] MEDS ORDERED: INSULIN NPH/REG 70/30 100 UNIT/ML SUBCUT SCH (16:30)
[2022-07-19] MEDS ORDERED: FUROSEMIDE 40 MG/4 ML VIAL IV ONE (16:38)
[2022-07-19] MEDS: cloNIDine 0.1 MG TABLET PO PRN ×2 (16:51→20:47)
[2022-07-19] MEDS: INSULIN LISPRO 100 UNIT/ML SUBCUT SCH ×2 (16:52→20:46)
[2022-07-19 16:53] LABS: Calcium 9.2 MG/DL (8.5-10.1); Osmolality,Calculated 304.9 MOS/KG (273-304); Potassium 3.9 MMOL/L (3.5-5.1)
[2022-07-19] MEDS ORDERED: INSULIN LISPRO 100 UNIT/ML SUBCUT SCH (18:00)
[2022-07-19] MEDS: MIRTAZAPINE 30 MG TABLET PO SCH (20:40)
[2022-07-19 22:19] LABS: Potassium 3.8 MMOL/L (3.5-5.1)
[2022-07-19 22:20] LABS: Osmolality,Calculated 290.6 MOS/KG (273-304)
[2022-07-19] MEDS ORDERED: SODIUM CHLORIDE 0.45% 1,000 ML IV SCH (23:00)
[2022-07-20] MEDS ORDERED: DIPHENOXYLATE/ATROPINE 2.5-0.025 MG TABLET PO PRN (01:23)
[2022-07-20] MEDS: cloNIDine 0.1 MG TABLET PO PRN ×3 (01:26→13:41)
[2022-07-20] MEDS: SODIUM CHLOR 0.45% KCL 20 MEQ 20 MEQ/1,000 ML BAG IV SCH (02:57)
[2022-07-20 04:03] LABS: Basophils % 0.2 % (0.0-0.8); Eosinophils # 0.2 10*3/uL (0.0-0.87); Eosinophils % 1.7 % (0.00-10.9); Hematocrit 25.5 VOL% (42.0-52.0); Hemoglobin 8.2 GM/DL (14.0-18.0); Immature Granulocytes % 0.6 %; Immature Granulocytes Absolute 0.08 #; Lymphocytes # 1.9 10*3/uL (1.4-4.0); Lymphocytes % 12.9 % (21.2-54.2); Mean Corpuscular HGB Conc 32.2 GM/DL (32-36); Mean Corpuscular Volume 88.2 FL (87-102); Monocytes # 0.9 10*3/uL (0.11-0.8); Monocytes % 6.5 % (1.7-12.7); Neutrophils % 78.1 % (38.7-73.9); Platelet Count 285 T/CUMM (130-400); Red Blood Count 2.89 MC/CUMM (3.8-5.5); Red Cell Distribution Width 14.4 % (9.3-17.3); White Blood Count 14.38 T/CUMM (4-12)
[2022-07-20] MEDS: INSULIN LISPRO 100 UNIT/ML SUBCUT SCH ×6 (04:19→19:59)
[2022-07-20 04:20] LABS: Calcium 8.6 MG/DL (8.5-10.1); Osmolality,Calculated 293.8 MOS/KG (273-304)
[2022-07-20 04:21] LABS: Phosphorous 1.4 MG/DL (2.5-4.9)
[2022-07-20] MEDS: ENOXAPARIN 40 MG/0.4 ML SYRINGE SUBCUT SCH (08:06)
[2022-07-20] MEDS: ASPIRIN EC 81 MG TABLET PO SCH (08:07)
[2022-07-20] MEDS: amLODIPine 10 MG TABLET PO SCH (08:07)
[2022-07-20] MEDS: INSULIN NPH/REG 70/30 100 UNIT/ML SUBCUT SCH (08:07)
[2022-07-20] MEDS: buPROPion SR 150 MG TABLET PO SCH (08:07)
[2022-07-20] MEDS: POTASSIUM PHOS/SOD PHOS 250 MG TABLET PO SCH ×3 (08:50→20:02)
[2022-07-20] MEDS ORDERED: INSULIN NPH/REG 70/30 100 UNIT/ML SUBCUT SCH (16:30)
[2022-07-20] MEDS: MIRTAZAPINE 30 MG TABLET PO SCH (20:01)
[2022-07-21] MEDS: cloNIDine 0.1 MG TABLET PO PRN ×2 (00:05→02:20)
[2022-07-21 05:09] LABS: Calcium 8.7 MG/DL (8.5-10.1); Osmolality,Calculated 285.1 MOS/KG (273-304); Potassium 4.4 MMOL/L (3.5-5.1)
[2022-07-21] MEDS ORDERED: INSULIN NPH/REG 70/30 100 UNIT/ML SUBCUT SCH (07:30)
[2022-07-21] MEDS: INSULIN LISPRO 100 UNIT/ML SUBCUT SCH (08:00)
[2022-07-21] MEDS ORDERED: cloNIDine 0.1 MG TABLET PO SCH (09:00)
[2022-07-21] MEDS: ASPIRIN EC 81 MG TABLET PO SCH (09:05)
[2022-07-21] MEDS: buPROPion SR 150 MG TABLET PO SCH (09:05)
[2022-07-21] MEDS: amLODIPine 10 MG TABLET PO SCH (09:05)
[2022-07-21 10:42] VITALS: BP 128/109
== END 2022-07-21 10:30 | disposition home or self-care (01) | DRG 420 ==
LOC: N.ED 03:27 → N.ICU 06:58 → SUATTDRO 07:15
PROVIDERS: ADMIT Emergency Medicine; ATTEND Internal Medicine